=== PATIENT | male | born 1975 | race Caucasian/White ===

== ENCOUNTER 2016-11-28 14:19 | Emergency (ER) | payer MEDICAID ==
[~2016-11-28] VITALS: Ht 180.3 cm; Wt 89.8 kg
[2016-11-28 14:35] VITALS: BP 141/65
--- NOTE | 2016-11-28 15:55 | NUR ---
Patient taken from ED lobby to CT scan via wheelchair by trish.
--- NOTE | 2016-11-28 16:00 | NUR ---
PATIENT PRESENTS TO ED WITH C/O HEADACHE . PT STATES HE FELL AFTER HAVING SOME ALCOHOLIC BEVERAGES WHILE CELEBRATING HIS BIRTHDAY . PT STATES HE DOES NOT RECALL A LOT OF DETAILS FORM THE NIGHT. DENIES N/V/D; SKIN IS PINK/WARM/DRY; AAOX4 WITH EVEN AND STEADY GAIT; LUNGS CLEAR BL; HR EVEN AND REGULAR; PT DENIES ANY FEVER, CP, SOB, OR COUGH AT THIS TIME; PATIENT STATES PAIN OF 8/10 AT THIS TIME; VSS; PATIENT POSITIONED FOR COMFORT; HOB ELEVATED; BEDRAILS UP X2; BED DOWN. ER MD MADE AWARE OF PT STATUS.
[2016-11-28] MEDS ORDERED: KETOROLAC 30 MG/ML VIAL IM ONE (18:15)
--- NOTE | 2016-11-28 18:47 | NUR ---
Patient discharged with v/s stable. Written and verbal after care instructions given and explained. Patient alert, oriented and verbalized understanding of instructions. Ambulatory with steady gait. All questions addressed prior to discharge. ID band removed. Patient advised to follow up with PMD. Rx of MOTRIN AND NORCO given. Patient educated on indication of medication including possible reaction and side effects. Opportunity to ask questions provided and answered.
[2016-11-28 18:52] VITALS: BP 134/93
== END 2016-11-28 18:47 | disposition home or self-care (01) ==
LOC: MED 14:19
PROC: 3E033GC Introduction of Other Therapeutic Substance into Peripheral Vein, Percutaneous Approach (ICD-10-PCS; principal; 2016-11-28)
PROC: BW28ZZZ Computerized Tomography (CT Scan) of Head (ICD-10-PCS; 2016-11-28)
DX: S09.90XA Unspecified injury of head, initial encounter (principal); F07.81 Postconcussional syndrome; R03.0 Elevated blood-pressure reading, without diagnosis of hypertension; W22.8XXA Striking against or struck by other objects, initial encounter; Y92.89 Other specified places as the place of occurrence of the external cause
CPT/HCPCS: 70450; 96372; 99284; J1885

== ENCOUNTER 2017-05-10 15:13 | Emergency (ER) | payer MEDICAID ==
[~2017-05-10] VITALS: Ht 180.3 cm; Wt 94.5 kg
[2017-05-10 15:17] VITALS: BP 136/76
[2017-05-10] MEDS ORDERED: KETOROLAC 60 MG/2 ML VIAL IM ONE (15:45)
--- NOTE | 2017-05-10 15:46 | NUR ---
Patient ambulated to bed 7. RN evaluating patient at bedside.
--- NOTE | 2017-05-10 15:50 | NUR ---
PATIENT BIB GIRLFRIEND C/O LOWER BACK PAIN WORSE THIS MORNING; PT STATES NO TRAUMA OR INJURY TO SITE AT THIS TIME. PT STATES PAIN COMES AND GO FOR 1 MONTH;PT STATES HE HAD A SURGERY IN HIS LT BUTTOCKS;DENIES N/V/D; SKIN IS PINK/WARM/DRY; AAOX4 WITH EVEN AND STEADY GAIT; LUNGS CLEAR BL; HR EVEN AND REGULAR; PT DENIES ANY FEVER, CP, SOB, OR COUGH AT THIS TIME; PATIENT STATES PAIN OF 8/10 AT THIS TIME;PATIENT POSITIONED FOR COMFORT; HOB ELEVATED; BEDRAILS UP X2; BED DOWN. ER MD MADE AWARE OF PT STATUS.
--- NOTE | 2017-05-10 16:25 | NUR ---
Dr. Braxton evaluating patient at bedside.
--- NOTE | 2017-05-10 16:45 | NUR ---
POT RESTING ON BED;NO ACUTE DISTRESS NOTED;WILL CONTINUE TO MONITOR PT.
[2017-05-10 17:02] VITALS: BP 124/73
== END 2017-05-10 17:02 | disposition home or self-care (01) ==
LOC: MED 15:13
DX: M54.5 Low back pain (principal); F17.210 Nicotine dependence, cigarettes, uncomplicated
CPT/HCPCS: 81002; 96372; 99283; J1885

== ENCOUNTER 2017-10-10 12:17 | Emergency (ER) | payer MEDICAID ==
[~2017-10-10] VITALS: Ht 180.3 cm; Wt 93.9 kg
[2017-10-10 12:21] VITALS: BP 114/69
--- NOTE | 2017-10-10 13:41 | NUR ---
PT AMBULATED TO BED 1.
[2017-10-10 14:15] LABS: APPEARANCE,URINE CLEAR (CLEAR); BILIRUBIN,URINE 1+ (NEGATIVE); BLOOD, URINE NEGATIVE (NEGATIVE); COLOR,URINE YELLOW (YELLOW); LEUKOCYTE ESTERASE ,URINE NEGATIVE (NEGATIVE); NITRITE, URINE NEGATIVE (NEGATIVE); PH,URINE 7.5 (5.0-9.0); UGLUCOSE NEGATIVE (NEGATIVE)
[2017-10-10 14:16] LABS: BASOPHILS # (AUTO) 0.2 K/uL (0.00-0.22); EOSINOPHILS # (AUTO) 0.1 K/uL (0-0.4); HEMATOCRIT 47.2 % (36-52); HEMOGLOBIN 15.8 g/dL (12.0-18.0); MEAN CORPUSCULAR HEMOGLOBIN 30 pg (27-31); MEAN CORPUSCULAR HGB CONC 34 g/dL (33-37); MEAN CORPUSCULAR VOLUME 90 fL (80-94); MONOCYTES # (AUTO) 0.3 K/uL (0.8-1.0); NEUTROPHILS # (AUTO) 4.7 K/uL (1.8-7.7); PLATELET COUNT (AUTO) 208 K/uL (140-450); RED BLOOD CELL COUNT(AUTO) 5.23 MIL/uL (4.20-6.10); RED CELL DISTRIBUTION WIDTH 12.3 % (11.6-13.7); WHITE BLOOD COUNT (AUTO) 6.3 K/uL (4.8-10.8)
--- NOTE | 2017-10-10 14:17 | NUR ---
patient brought in by private vehicle for c/o n/v/d and epigastric pain for past two days. patient is alert and oriented x 4. patient states his stomach feels "bubbly". abdomen is soft, non-tender. bowel sounds present. patient states his epigastric pain increases when standing up. patient states " I haven't had anything to eat or drink because I'm scared that I will vomit or have diarrhea." past states last episode of vomiting and diarrhea was this morning x 2. no observations of vomiting or diarrhea at this time. patient appears comfortable. awaiting er md evaluation.
[2017-10-10 14:37] LABS: ALBUMIN 3.3 g/dL (3.4-5.0); CARBON DIOXIDE 29.6 mmol/L (21-32); POTASSIUM 3.6 mmol/L (3.5-5.1); TOTAL BILIRUBIN 0.7 mg/dL (0.0-1.0)
[2017-10-10 14:44] LABS: RBC,URINE NONE SEEN /HPF (0-5); WBC,URINE 0-5 (RARE) /HPF (0-5)
[2017-10-10] MEDS ORDERED: NACL 0.9% 1,000 ML IV ONE ×2 (14:50→14:55)
[2017-10-10] MEDS ORDERED: ONDANSETRON 4 MG/2 ML VIAL IVP ONE (14:55)
--- NOTE | 2017-10-10 16:25 | NUR ---
Patient discharged with v/s stable. Written and verbal after care instructions given and explained. Patient alert, oriented and verbalized understanding of instructions. Ambulatory with steady gait. All questions addressed prior to discharge. ID band removed. Patient advised to follow up with PMD. Rx of Imodium Ad and Zofran ODT given. Patient educated on indication of medication including possible reaction and side effects. Opportunity to ask questions provided and answered.
[2017-10-10 16:43] VITALS: BP 126/82
== END 2017-10-10 16:25 | disposition home or self-care (01) ==
LOC: MED 12:17
DX: A08.4 Viral intestinal infection, unspecified (principal); E86.0 Dehydration
CPT/HCPCS: 36415; 80053; 81001; 82150; 83690; 85025; 96361; 96374; 99284; J2405; J7030

== ENCOUNTER 2019-09-13 10:22 | Emergency (ER) | payer MEDICAID, OTHER ==
[~2019-09-13] VITALS: Ht 180.3 cm; Wt 81.6 kg
--- NOTE | 2019-09-13 10:28 | NUR ---
PT TO ER BED 9
[2019-09-13 10:37] VITALS: BP 104/68
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
--- NOTE | 2019-09-13 11:15 | NUR ---
PT GOING TO XRAY VIA WHEELCHAIR
--- NOTE | 2019-09-13 11:29 | NUR ---
PT RETURNED FROM XRAY
[2019-09-13 12:43] VITALS: BP 104/68
--- NOTE | 2019-09-13 12:43 | NUR ---
Patient discharged with v/s stable. Written and verbal after care instructions given and explained. Patient alert, oriented and verbalized understanding of instructions. Ambulatory with steady gait. All questions addressed prior to discharge. ID band removed. Patient advised to follow up with PMD. Rx of NORCO, NAPROXEN given. Patient educated on indication of medication including possible reaction and side effects. Opportunity to ask questions provided and answered.
== END 2019-09-13 12:43 | disposition home or self-care (01) ==
LOC: MED 10:22
DX: M79.605 Pain in left leg (principal); Z98.890 Other specified postprocedural states
CPT/HCPCS: 99283

== ENCOUNTER 2021-03-08 18:06 | Emergency (ER) | payer MEDICAID, OTHER ==
[~2021-03-08] VITALS: Ht 180.3 cm; Wt 84.8 kg
[2021-03-08 18:16] VITALS: BP 109/75
[2021-03-08] MEDS ORDERED: LORazepam 0.5 MG TAB PO ONE (18:45)
[2021-03-08] MEDS ORDERED: HYDR-1093 PO (18:54)
[2021-03-08 19:07] VITALS: BP 109/75
--- NOTE | 2021-03-08 19:07 | NUR ---
Patient discharged with v/s stable. Written and verbal after care instructions given and explained. Patient alert, oriented and verbalized understanding of instructions. Ambulatory with steady gait. All questions addressed prior to discharge. ID band removed. Patient advised to follow up with PMD. Rx of HYDROXYZINE HCL given. Patient educated on indication of medication including possible reaction and side effects. Opportunity to ask questions provided and answered.
== END 2021-03-08 19:07 | disposition home or self-care (01) ==
LOC: MED 18:06
DX: F41.0 Panic disorder [episodic paroxysmal anxiety] (principal); F43.10 Post-traumatic stress disorder, unspecified; R44.1 Visual hallucinations; R44.0 Auditory hallucinations; Z79.899 Other long term (current) drug therapy
CPT/HCPCS: 99283